=== PATIENT | female | born 1925 | race Caucasian/White ===

== ENCOUNTER 2016-09-05 17:45 | Inpatient (IN) | payer MEDICARE ==
--- NOTE | ~2016-09-05 | DS ---
Discharge Summary [facility] [address] [place]. [address] NAME: LYNETTE SPANN : [birth year] STATUS : DIS IN PAT#: [id number] AGE: 89 ADM/REG DATE : 09/05/16 MR#: [id number] REPORT SERV DATE: 10/01/16 DICTATED BY: JOSÉ RAHMAN DATE: 09/30/16 REPORT STATUS : Draft TRANSCRIBED BY: EPIFANIO DATE: 09/30/16 Data Collection from hospitalization DISCHARGE DIAGNOSES: 1. Acute/chronic diastolic congestive heart failure. 2. Atrial fibrillation. 3. Gastrointestinal bleeding. 4. Anemia. 5. Chronic kidney disease. 6. Hypertension. 7. Hypothyroidism. 8. Dyslipidemia. CONSULTATIONS: CHRISTINA Dial PROCEDURES PERFORMED: Upper GI endoscopy on 09/11/2016. PATHOLOGY: Stomach biopsy - mild chronic gastritis with focal activity and foci of intestinal metaplasia. Immunohistochemistry for H. pylori negative. MEDICATIONS: Caltrate 600 mg with lunch, Cardizem CD 120 mg daily, Benadryl 25 mg at bedtime, ferrous sulfate 150 mg twice a day, glucosamine and chondroitin one tablet with lunch, levothyroxine 50 mcg before breakfast, melatonin 3 mg at bedtime, Protonix 40 mg before breakfast, Demadex 20 mg daily, Symbicort two puffs via inhaler twice a day, glucosamine 1000 mg with breakfast, Systane one drop as needed in the right eye, PreserVision one capsule with breakfast and supper, ipratropium 0.5 mg via nebulizer twice a day, and sotalol AF 80 mg twice a day. CONDITION AT DISCHARGE: Stable. DISPOSITION: The patient was discharged to [facility] on a low-sodium diet with activities as instructed. She would follow up for an EKG on 09/23/2016 at [facility]. She would follow up with Dr. José Rahman on 09/26/2016 at this [place] [facility]. She would follow up with her primary care physician Dr. Cyndie Merritt one to two weeks following discharge. HOSPITAL COURSE: This is an 89-year-old female who has had multiple medical and cardiovascular issues, which include a history of systolic heart failure. The patient's ejection fraction more recently had improved to normal. Her most recent echocardiogram from December of 2015 demonstrated normal left ventricular systolic function with ejection fraction of 60%. She was in her usual state of health until about several days prior to admission when she began to have paroxysm of palpitations, which she reports are consistent with atrial fibrillation. The patient presented to the emergency room on 09/02/2016 for evaluation. At that time, she was treated on an outpatient basis with IV Lasix and eventually discharged home. The patient continued to have progressive shortness of breath. She presented back to the emergency room and had atrial fibrillation with rapid ventricular response and acute congestive heart failure. She had audible wheezing and orthopnea. She denied chest pain at this time, fevers or chills. She denied a productive cough. She was Discharge Summary [address] [place]. [address] NAME: LYNETTE SPANN : [birth year] STATUS : DIS IN PAT#: [id number] AGE: 89 ADM/REG DATE : 09/05/16 MR#: [id number] REPORT SERV DATE: 10/01/16 DICTATED BY: JOSÉ RAHMAN DATE: 09/30/16 REPORT STATUS : Draft TRANSCRIBED BY: EPIFANIO DATE: 09/30/16 admitted to the hospital for further evaluation and treatment. Upon admission, chest x-ray showed dual-chamber pacemaker with leads in the appropriate position in the right atrium and right ventricle. There appeared to be [id number] pulmonary vascular congestion in a "bat winging" pattern. No significant effusions were noted. Lungs were under inflated. The thoracic aorta was tortuous. The patient was started on Cardizem drip for rate control. Carvedilol would be increased as tolerated or consider the addition of a low-dose calcium channel praveen for rate control. It was felt that it would probably be best to diurese the patient, so she was euthymic prior to cardioversion. We would replace her serum magnesium. Transthoracic echocardiogram was requested to ensure there had been no significant change in the patient's left ventricular systolic function. IV Lasix was going to begin and it was felt that the patient's congestive heart failure most likely was precipitated by atrial fibrillation with rapid ventricular response. The patient had a history of guaiac-positive stool. She has microcytic anemia, which was most likely due to chronic blood loss. Unfortunately, the patient is also relatively higher risk for stroke if we were to discontinue the Coumadin. The patient had previously refused referral for upper and lower endoscopy. Once she had been optimized, we would consider a GI consult to consider upper and lower endoscopy to identify the source of the patient's blood loss. Stool guaiacs would be obtained. The patient has dual-chamber pacemaker, and on most recent interrogation, there was normal device function. The following day, there had been minimal improvement. She had some nausea, but no emesis. She had trace pedal edema. Lasix continued as well as Coreg. Famotidine was discontinued. IV Protonix was started. She continued to complain of generalized fatigue. Lasix was on hold for increasing creatinine. Apparently, the patient had been receiving oral Bumex and this was also discontinued. On 09/09/2016, she was being transfused. She still had some wheezing. H and H had decreased. She was seen by Dre Choi for evaluation and management of GI bleeding and acute blood loss anemia. She has been Hemoccult positive on 05/28 stools. She said she had on and off black stools for one to two months. She was significantly short of breath just getting to the bedside commode. She does have acute on chronic anemia. She will be re-evaluated the following morning. There was concern about her pulmonary status at this time. She had audible wheezing and shortness of breath. Proton pump inhibitor was increased. She would be re- evaluated for potential scope, the patient and her daughter were agreeable. On 09/10/2016, her breathing seemed better. She had a couple of bowel movements that were brown. She said she has had overnight breathing issues, but that morning those had improved. Plans were being made for an EGD to be performed. She seemed to be breathing easily. IV Lasix was restarted for volume overload. Creatinine had improved. She was not a candidate for further cardiac workup at the present time secondary to her chronic kidney disease and ongoing GI bleed. On 09/11/2016, she was taken to the endoscopic suite where she underwent the above-mentioned procedure by Dr. Hernan Phillips. She tolerated this well, and there were no complications. There was a hiatal hernia. There was erythematous mucosa in the stomach, which was biopsied. The exam was otherwise normal. She had some increased shortness of breath. Her heart rate increased and she was in atrial fibrillation. It was felt that she had questionable pulmonary toxicity to amiodarone. Coreg and Lasix were increased. IV Cardizem Discharge Summary [id number] [place]. [address] NAME: LYNETTE SPANN : [birth year] STATUS : DIS IN PAT#: [id number] AGE: 89 ADM/REG DATE : 09/05/16 MR#: [id number] REPORT SERV DATE: 10/01/16 DICTATED BY: JOSÉ RAHMAN DATE: 09/30/16 REPORT STATUS : Draft TRANSCRIBED BY: EPIFANIO DATE: 09/30/16 was added. On 09/12/2016, she felt like her dyspnea was the same. She had no chest pain or palpitations. She has some nausea with breakfast. She did have one episode of vomiting. She was in atrial fibrillation with heart rate in the 70s-90s. Potassium supplementation was given. She had audible wheezing. There were no plans for colonoscopy as the patient and her family had refused. For the next couple of days, she remained in atrial fibrillation. Creatinine level was 1.75. She has not had a bowel movement in several days. Protonix was adjusted. Oral iron and vitamin C were continued. On 09/14/2016, she remained in atrial fibrillation with rapid ventricular response. She said she had been on amiodarone in the past, but this had been discontinued by Dr. Campbell. On 09/15/2016, she said she still felt bad. She still had increased ventricular response. Creatinine was 1.66. She was upset about continuing on n.p.o. Status. It was felt that she may possibly need to undergo ablation. She said she was feeling better overall physically. Discharge planning was performed. On 09/17/2016, she had no specific complaints. She had no chest pain or shortness of breath. There was no melena seen. Telemetry revealed atrial paced rhythm. The patient did appear euvolemic. Torsemide was continued. No AV miriam ablation was going to be performed at this time. Coumadin was going to be on hold. Pantoprazole was continued. Acute kidney injury was improving. We would avoid nephrotoxins. Later that day, the patient reverted back to atrial fibrillation. Given her left bundle-branch block, we felt that it was safe to start sotalol. Coreg was stopped. She had no symptoms at this time. She was going to receive her first dose of sotalol and then discharge her if there were no adverse side effects. Heart rate was controlled at 90- 110 beats per minute. Discharge instructions were given. Due to her improved and stable condition, she was discharged to [facility] with the above-stated instructions. Information collected by: Carly Gaytan I submit the above information as my discharge summary. BRENDA/EPIFANIO José Rahman MD / [id number] CC: MD Cyndie Kwong M.D. Destin Griffin-Trussell, FNP [facility]
--- NOTE | ~2016-09-05 | HP ---
History And Physical [place] [address] [address] [place]. [address] NAME: LYNETTE SHORT : [birth year] STATUS : ADM IN [facility]#: [id number] AGE: 89 ADM/REG DATE : 09/05/16 MR#: [id number] REPORT SERV DATE: 09/06/16 DICTATED BY: JOSÉ RAHMAN DATE: 09/06/16 REPORT STATUS : Draft TRANSCRIBED BY: MODL DATE: 09/06/16 DATE OF ADMISSION: 09/05/2016 IDENTIFYING DATA: The patient is an 89-year-old woman with a history of paroxysmal atrial fibrillation and combined systolic/diastolic congestive heart failure. CHIEF COMPLAINT: The patient is admitted with a several-day history of shortness of breath, palpitations, and fatigue. HISTORY OF PRESENT ILLNESS: Ms. Short is an 89-year-old woman with multiple medical and cardiovascular issues which include a history of systolic heart failure. The patient's ejection fraction more recently has improved to normal. Her most recent echocardiogram from December of 2015 demonstrates normal left ventricular systolic function with an ejection fraction of 60%. The patient was in her usual state of health until several days ago. The patient has been having paroxysms of palpitations, which she reports are consistent with atrial fibrillation. The patient presented to the emergency room on 09/02/2016 for evaluation. At that time, she was treated on an outpatient basis with IV Lasix and eventually discharged to home. The patient continued to have progressive shortness of breath. She presented back to the emergency room last night and has been admitted for atrial fibrillation with rapid ventricular response and acute congestive heart failure. At this time, the patient continues to have shortness of breath at rest. She has audible wheezing, and endorses orthopnea. She denies chest pain at this time. She denies fevers or chills. She denies productive cough. PAST MEDICAL HISTORY: 1. Atrial fibrillation with tachy-mick syndrome, status post dual-chamber pacemaker placement. 2. Hypothyroidism. 3. COPD with FEV1 of approximately 0.86 L. 4. Diastolic congestive heart failure. 5. Hypertension. 6. Dyslipidemia. PAST SURGICAL HISTORY: 1. The patient has had a dual-chamber pacemaker implantation. 2. Vein stripping surgery. 3. Hysterectomy. 4. Tonsillectomy. 5. Left hip replacement. 6. Bilateral cataract extraction. FAMILY HISTORY: The patient's father of myocardial infarction at age 73. There is no other family history of early coronary heart disease or sudden cardiac . History And Physical [address] [address] NAME: LYNETTE SHORT : [birth year] STATUS : ADM IN PAT#: [id number] AGE: 89 ADM/REG DATE : 09/05/16 MR#: [id number] REPORT SERV DATE: 09/06/16 DICTATED BY: JOSÉ RAHMAN DATE: 09/06/16 REPORT STATUS : Draft TRANSCRIBED BY: EPIFANIO DATE: 09/06/16 SOCIAL HISTORY: The patient has no significant history of tobacco, alcohol, or drug use. 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 ALLERGIES: THE PATIENT HAS AN ANAPHYLACTOID REACTION TO PENICILLIN. SHE HAS ADVERSE REACTIONS TO SULFA, WHICH CAUSES NAUSEA AND PREDNISONE WHICH CAUSES ANXIETY/NERVOUSNESS. HOME MEDICATIONS: 1. DuoNebs one inhalation twice daily. 2. Symbicort 160/4.5 mcg inhaler two puffs twice daily. 3. Calcium carbonate 600 mg p.o. daily with lunch. 4. Carvedilol 6.25 mg p.o. twice daily. 5. Vitamin D3 1000 units p.o. q.p.m. 6. Benadryl 25 mg p.o. at bedtime. 7. Famotidine 20 mg p.o. daily with lunch. 8. Lasix 20 mg p.o. daily x3 days. This was given to the patient at the time of her recent emergency room visit. 9. Glucosamine 1 g p.o. q.a.m. 10.Hydrochlorothiazide 12.5 mg daily with lunch. 11.Levothyroxine 50 mcg p.o. daily. 12.Melatonin 3 mg p.o. at bedtime. 13.Systane ophthalmologic drops p.r.n. dry eyes. 14.Multivitamin supplement one daily. 15.Coumadin 2 mg p.o. every Friday, Friday, Friday, , and Friday and 2.5 mg every Friday and Friday. REVIEW OF SYSTEMS: A complete 12-system review was performed. This is noncontributory except for the pertinent positives and negatives noted in the history of present illness above. PHYSICAL EXAMINATION: VITAL SIGNS: Temperature is 98.1 degrees Fahrenheit, blood pressure is 109/59 mmHg, heart rate on admission is approximately 150 beats per minute and irregularly irregular. The patient's heart rate at this time is approximately 90 beats per minute after being started on Cardizem drip, respirations 16, oxygen saturation is 100% on a 3 L nasal cannula. CONSTITUTIONAL: The patient is an elderly white woman, who is mildly dyspneic at this time, but in no acute respiratory distress. She is able to speak in complete sentences and is grossly oriented x3. EYES: PERRL, EOMI, clear conjunctiva. HEAD/MNT: NCAT with moist mucous membranes and grossly normal hard and soft palate. NECK: Supple with no obvious thyromegaly or lymphadenopathy. CARDIOVASCULAR: There is an irregularly irregular rhythm with a variable S1 and a paradoxically split second heart sound. The jugular venous pressure is elevated to approximately 12 cm. No significant murmurs are noted. PULMONARY: There is diffuse inspiratory and expiratory wheezing noted, with globally decreased air movement. There are scattered posterior rales noted in the lung bases bilaterally. There is no dullness to percussion at this time. ABDOMINAL: Soft, nontender, nondistended with no hepatosplenomegaly noted. History And Physical [address] [address] NAME: LYNETTE SHORT : [birth year] STATUS : ADM IN [facility]#: [id number] AGE: 89 ADM/REG DATE : 09/05/16 MR#: [id number] REPORT SERV DATE: 09/06/16 DICTATED BY: JOSÉ RAHMAN DATE: 09/06/16 REPORT STATUS : Draft TRANSCRIBED BY: EPIAFNIO DATE: 09/06/16 EXTREMITIES: There is trace ankle edema with no significant clubbing or cyanosis. MUSCULOSKELETAL: Grossly normal strength and range of motion in all extremities. INTEGUMENTARY: Skin appears intact with no bruises, wounds or active lesions noted. NEURO/PSYC: Alert and oriented x3, with no dysarthria, facial droop or lateralizing weakness noted. 12-LEAD EKG: The patient's admission 12-lead EKG shows atrial fibrillation with a left bundle-branch block pattern and rapid ventricular response with a rate of 144 beats per minute. LABORATORY DATA: Cell count show a white blood cell count of 9.8, hemoglobin 8.2, hematocrit 25, platelets 274. Chemistry profile shows a sodium of 132, potassium 3.9, chloride is 94, CO2 of 24, BUN 44, creatinine is 1.39, glucose is 102, calcium 8.9, magnesium 1.7. Troponin I is normal at 0.02. B-type natriuretic peptide is grossly elevated at 1343. INR is 2.0. CHEST X-RAY: The patient's chest x-ray shows a dual-chamber pacemaker with leads in appropriate position in the right atrium and right ventricle. There appears to be mild-to- moderate pulmonary vascular congestion in a "bat winging" pattern. No significant effusions are noted. The lungs are underinflated. The thoracic aorta is tortuous. ASSESSMENT AND PLAN: 1. Atrial fibrillation with rapid ventricular response: The patient will be started on a Cardizem drip for rate control. We will increase carvedilol as tolerated or consider addition of a low-dose calcium channel praveen for rate control. The patient did eat breakfast this morning, and therefore I will be unable to cardiovert the patient today. It would probably be best to diurese the patient so that she is in euthymic state prior to cardioversion at any rate. We will also replace the patient's serum magnesium. 2. Acute congestive heart failure: A transthoracic echocardiogram will be obtained to ensure there has been no significant change in the patient's left ventricular systolic function. The patient will be started on Lasix 40 mg IV q.12 hours. The patient's congestive heart failure was most likely precipitated by atrial fibrillation with rapid ventricular response. 3. Chronic anemia: The patient does have a history of guaiac-positive stool. She has a microcytic anemia, which is most likely due to chronic blood loss. Unfortunately, the patient is also relatively high risk for stroke if we were to discontinue Coumadin. The patient has previously refused referral for upper and lower endoscopy. Once the patient has been optimized, we will consider a GI consult to consider upper and lower endoscopy to identify the source of the patient's blood loss. Stool guaiacs will be obtained. 4. Status post dual-chamber pacemaker placement: Normal device function according to the patient's most recent interrogation. [facility] History And Physical [address] [place]. [address] NAME: LYNETTE SHORT : [birth year] STATUS : ADM IN PAT#: [id number] AGE: 89 ADM/REG DATE : 09/05/16 MR#: [id number] REPORT SERV DATE: 09/06/16 DICTATED BY: JOSÉ RAHMAN DATE: 09/06/16 REPORT STATUS : Draft TRANSCRIBED BY: MODL DATE: 09/06/16 José Rahman MD / [id number] CC: MD Cyndie Kwong M.D.
--- NOTE | ~2016-09-05 | CN ---
Consultation Report [facility] [address] [place]. [address] NAME: ITALIA SHORT : [birth year] STATUS : ADM IN PAT#: [id number] AGE: 89 ADM/REG DATE : 09/05/16 MR#: [id number] REPORT SERV DATE: 09/09/16 DICTATED BY: JIMMIE PETERSON DATE: 09/09/16 REPORT STATUS : Draft TRANSCRIBED BY: MODL DATE: 09/09/16 GI CONSULTATION DATE OF CONSULTATION: 09/09/2016 REASON FOR CONSULTATION: Evaluation and management of the patient for GI bleeding and acute blood loss anemia. HISTORY OF PRESENT ILLNESS: Ms Italia Short is a very pleasant 89-year-old female patient who had been seen by Vinny YANCEY in the office by nurse practitioner, Megan Benavides, in 2015 secondary to anemia. The patient presented to [facility] with a chief complaint of shortness of breath, palpitations, and fatigue. She has a history of proximal atrial fibrillation, systolic and diastolic CHF with a history of being on Coumadin, cessation three days ago. She presented with several days of palpitations with shortness of breath that progressively worsened. She was actually seen in the emergency room 09/02/2016 for evaluation. At that time, she was treated with IV Lasix and eventually was discharged to home. She states that her shortness of breath continued to get worse. Thus she came in for further evaluation and was found to be in atrial fibrillation with rapid ventricular response as well as acute congestive heart failure. Since that time, she had noted to significantly decline in her hemoglobin, admission hemoglobin 8.2, presently 6.7. She has been Hemoccult positive one out of three stools. She has a history of what she tells me is on and off black stools for close to one to two months. It should be noted that the patient had a bowel movement right before entering the room, and I did evaluate this and it is just a soft brown stool. She has recently had an infusion of packed red blood cells. She is audibly wheezing. I can hear her from across the room. She is significantly short of breath, just getting it from the bedside commode to get back into the bed. She cannot catch her breath to have the conversation with me, so her daughters have supplied with most of the history of present illness. When she was seen in 2015, she was seen twice and it was discussed with the family as well as the patient endoscopy, to which, each time they declined secondary to comorbidities. I have discussed with them that we will re-evaluate her tomorrow for potential scopes on Friday after her pulmonary status has improved. PAST MEDICAL HISTORY: Positive for atrial fibrillation; history of tachy-mick syndrome, status post pacemaker placement; hypothyroidism; COPD, followed by Dr. Herrera; diastolic CHF, hypertension, dyslipidemia; anemia. SURGICAL HISTORY: Pacemaker, vein stripping, tonsillectomy, left hip replacement, bilateral cataracts, hysterectomy. FAMILY HISTORY: Noncontributory from a GI standpoint. SOCIAL HISTORY: She lives with her daughter. Denies alcohol, tobacco, or illicits. Consultation Report [address] [place]. [address] NAME: ITALIA SHORT : [birth year] STATUS : ADM IN [facility]#: [id number] AGE: 89 ADM/REG DATE : 09/05/16 MR#: [id number] REPORT SERV DATE: 09/09/16 DICTATED BY: JIMMIE PETERSON DATE: 09/09/16 REPORT STATUS : Draft TRANSCRIBED BY: EPIFANIO DATE: 09/09/16 ALLERGIES: PENICILLIN, SULFA, AND PREDNISONE. MEDICATIONS: Home medications are albuterol, Symbicort, Caltrate, Coreg, vitamin D3, Benadryl, Pepcid, Lasix, glucosamine, hydrochlorothiazide, levothyroxine, melatonin, Systane, PreserVision, Jantoven. REVIEW OF SYSTEMS: A 10-point review of systems has been obtained. Pertinent positives addressed in the history of present illness. PHYSICAL EXAMINATION: VITAL SIGNS: Temperature is 98.4, pulse 90, respirations 16, blood pressure is 111/56. GENERAL: Reveals an alert, chronically ill-appearing female, sitting up on the bedside. She is cooperative. She is in distress secondary to shortness of breath. She is hard of hearing, but alert and oriented x3. HEAD, EARS, EYES, NOSE, AND THROAT: Anicteric. Pupils equal, round, reactive to light, and accommodation. Normocephalic and atraumatic. NECK: No JVD. No palpable nodes. Supple. LUNGS: She has audible wheezing from across the room. On assessment, she has bilateral wheezing in the upper lobes on expiratory phase. She has crackles bilaterally. CARDIOVASCULAR SYSTEM: Regular rate and rhythm. ABDOMEN: Soft, nondistended, nontender with active bowel sounds. SKIN: Warm and dry and intact. LOWER EXTREMITIES: 1 to 2+ bilateral lower extremity edema. PERTINENT LABORATORY DATA: Sodium 128, potassium 4.1, BUN is 48, creatinine is 1.6. White count 8.5, hemoglobin 6.7, hematocrit 20.4, platelet count 215. INR of 1.9. Troponin 0.02. BNP 1343. Hemoccult positive one out of three. PERTINENT IMAGING: Chest x-ray on admission showed to be normal. ASSESSMENT AND PLAN: 1. Anemia acute on chronic. Declined since hospitalization. 2. Hemoccult-positive, one out of three, with a history of dark stools. 3. Diastolic congestive heart failure overload. 4. Hyponatremia. 5. History of atrial fibrillation, on Coumadin, that has been held. PLAN: 1. Re-evaluate in the morning and concerned with her pulmonary status at this time. Audible wheezing. Shortness of breath. 2. We will increase her PPI to t.i.d. dosing. 3. We will re-evaluate in the morning for potential scopes on Friday. I discussed this all with the patient as well as the patient's daughter, they are agreeable. Consultation Report [facility] [address] [place]. [address] NAME: ITALIA SHORT : [birth year] STATUS : ADM IN [facility]#: [id number] AGE: 89 ADM/REG DATE : 09/05/16 MR#: [id number] REPORT SERV DATE: 09/09/16 DICTATED BY: JIMMIE PETERSON DATE: 09/09/16 REPORT STATUS : Draft TRANSCRIBED BY: EPIFANIO DATE: 09/09/16 CHA/EPIFANIO CHRISTINA Dial / [id number] CC: MD Cyndie Kwong M.D.
--- NOTE | ~2016-09-05 | EGD ---
EGD REPORT [facility] [address] [address] NAME: ITALIA SHORT : [birth year] STATUS : ADM IN PAT#: [id number] AGE: 89 ADM/REG DATE : 09/05/16 MR#: [id number] REPORT SERV DATE: 09/11/16 DICTATED BY: HERNAN DOS SANTOS DATE: 09/11/16 REPORT STATUS : Draft [facility]ANSCR[facility]ED [facility]: [facility] DATE: 09/11/16 Endoscopy Center Patient Name: Italia Short Date of : 1925 Attending MD: HERNAN DOS SANTOS MD Procedure Date No Time: 09/11/2016 Procedure: Upper GI endoscopy Indications: Anemia, Heme positive stool Medicines: Monitored Anesthesia Care Complications: No immediate complications. Estimated blood loss: Minimal. Procedure: Pre-Anesthesia Assessment: - ASA Grade Assessment: III - A patient with severe systemic disease. After obtaining informed consent, the endoscope was passed under direct vision. Throughout the procedure, the patient's blood pressure, pulse, and oxygen saturations were monitored continuously. The GIF [id number] was introduced through the mouth, and advanced to the second part of duodenum. The upper GI endoscopy was accomplished without difficulty. The patient tolerated the procedure well. Findings: The examined esophagus was normal. A medium-sized hiatus hernia was present. Diffuse moderately erythematous mucosa without bleeding was found in the entire examined stomach. Biopsies were taken with a cold forceps for Helicobacter pylori testing. Estimated blood loss was minimal. The examined duodenum was normal. The exam was otherwise without abnormality. Impression: - Hiatus hernia. - Erythematous mucosa in the stomach. Biopsied. - The examination was otherwise normal. Recommendation: - [facility]. - Await pathology results. Procedure Code(s): --- Professional --- 87662, Esophagogastroduodenoscopy, flexible, transoral; with biopsy, single or multiple Diagnosis Code(s): --- Professional --- K44.9, Diaphragmatic hernia without obstruction or EGD REPORT [address] [place]. [address] NAME: ITALIA SHORT : [birth year] STATUS : ADM IN [facility]#: [id number] AGE: 89 ADM/REG DATE : 09/05/16 MR#: [id number] REPORT SERV DATE: 09/11/16 DICTATED BY: HERNAN DOS SANTOS DATE: 09/11/16 REPORT STATUS : Draft TRANSCRIBED BY: [employer] [facility] DATE: 09/11/16 gangrene K31.9, Disease of stomach and duodenum, unspecified D64.9, Anemia, unspecified R19.5, Other fecal abnormalities CPT copyright 2013 [employer]. All rights reserved. The codes documented in this report are preliminary and upon clinical coder review may be revised to meet current compliance requirements. Hernan Dos Santos MD HERNAN DOS SANTOS MD 09/11/2016 8:18 AM This report has been signed electronically. Number of Addenda: 0 Note Initiated On: 09/11/2016 7:47 AM Scope Withdrawal Time 0 hours 0 minutes 0 seconds [address] [place] [address]
[~2016-09-05 17:45] MED LIST: ADVAIR250 INH; ASAB PO; BEN25 PO; BUM1 PO; C1 PO; C5 PO; CALTRAT600 PO; COREG3 PO; COREG6 PO; DIGITEK0.125 MG PO; DILT-XR120 MG PO; FISH-EPA1000 MG PO; GARLIFE OR; GARLIFE PO; GLUCCHONDR PO; GLUCOSAMINE SULFATE PO; HYDROCHLOROT12.5 MG PO; LEVAQ250 PO; LEVOTHYROXIN50 MCG PO; LOVENOX60 SC; MELA3 PO; MELATONIN PO; MELATONIN1 MG OR; MICRO-K10 MEQ PO; MUCINEX600 MG PO; NIFEDIAC CC60 MG PO; OS500 PO; PACERONE100 MG PO; PEP20 PO; PRESERVISION PO; PREVISION; PRIN10 PO; PRIN20 PO; TAMBO50 PO; VALERIAN PO
[2016-09-05 18:19] LABS: BASOPHILS 0.3 %; BASOPHILS ABSOLUTE 0.03 10/3/uL (0.0-0.16); EOSINOPHILS 1.8 %; EOSINOPHILS ABSOLUTE 0.18 10/3/uL (0.0-0.53); ER CBC TAT 0 Hrs 05 Mins; HEMATOCRIT 25.1 % (36.0-48.0); HEMOGLOBIN 8.2 g/dL (12.0-16.0); IMMATURE GRANULOCYTES 0.1 %; IMMATURE GRANULOCYTES ABSOLUTE 0.01 10/3/uL (0.0-0.11); LYMPHOCYTES 36.6 %; LYMPHOCYTES ABSOLUTE 3.57 10/3/uL (0.67-4.30); MEAN CORPUS HGB CONC 32.7 g/dL (32.0-36.0); MEAN CORPUSCULAR VOLUME 76.5 fL (80-100); MEAN PLATELET VOLUME 10.2 fL (9.2-13.0); MONOCYTES 10.9 %; MONOCYTES ABSOLUTE 1.06 10/3/uL (0.21-1.20); NEUTROPHILS 50.3 %; NEUTROPHILS ABSOLUTE 4.91 10/3/uL (2.02-8.40); PLATELET COUNT 274 10/3/uL (150-400); RBC DISTRIBUTION WIDTH 15.8 % (12.0-16.0); RED CELL COUNT 3.28 10/6/uL (4.0-5.6); WHITE BLOOD CELLS 9.8 10/3/uL (4.5-10.5)
[2016-09-05 18:20] LABS: MANUAL DIFF NO %
[2016-09-05 18:31] LABS: INTERNATIONAL NORMAL RATI 2.2 UNITS (-); PARTIAL THROMBO TIME 32.4 SEC (22.5-37.2)
[2016-09-05 18:32] LABS: PROTIME (NOT ORD) 24.3 SEC (12.0-14.5)
[2016-09-05 18:36] LABS: CALCIUM, SERUM 8.9 MG/DL (8.5-10.4); CHEST PAIN PROFILE TAT 0 Hrs 22 Mins; CHLORIDE, SERUM 94 MMOL/L (96-112); CO2 (CARBON DIOXIDE) 28 MMOL/L (24-34); CREATININE 1.39 MG/DL (0.55-1.02); GFR AFRICAN AMERICAN 39 ML/MIN (>=60); GFR NON AFRICAN AMERICAN 34 ML/MIN (>=60); GLUCOSE, SERUM 102 MG/DL (60-99); POTASSIUM, SERUM 3.9 MMOL/L (3.5-5.3); SODIUM, SERUM 132 MMOL/L (135-148); TROPONIN I 0.02 NG/ML (<0.05)
[2016-09-05 18:37] LABS: BUN (BLOOD UREA NITROGEN) 44 MG/DL (6-23)
[2016-09-05] MEDS ORDERED: LEVOTHYROXIN50 MCG PO (21:08)
[2016-09-05] MEDS ORDERED: COREG6 PO (21:09)
[2016-09-05] MEDS ORDERED: JANTOVEN2 MG PO (21:09)
[2016-09-05] MEDS ORDERED: JANTOVEN2.5 MG PO (21:10)
[2016-09-05] MEDS ORDERED: CALTRAT600 PO (21:10)
[2016-09-05] MEDS ORDERED: SYSTANE OPH (21:11)
[2016-09-05] MEDS ORDERED: GLUCOSAMINEPO PO (21:11)
[2016-09-05] MEDS ORDERED: GLUCCHONDR PO (21:12)
[2016-09-05] MEDS ORDERED: MELA3 PO (21:12)
[2016-09-05] MEDS ORDERED: VITAMIN D31000 UNIT PO (21:12)
[2016-09-05] MEDS ORDERED: PRESERVISION A1 EAC1 PO (21:12)
[2016-09-05] MEDS ORDERED: BEN25 PO (21:12)
[2016-09-05] MEDS ORDERED: HYDROCHLOROT12.5 MG PO (21:13)
[2016-09-05] MEDS ORDERED: PEP20 PO (21:13)
[2016-09-05] MEDS ORDERED: ATROVENTUD INH (21:13)
[2016-09-05] MEDS ORDERED: SYMBICORT 160/41 INH INH (21:13)
[2016-09-05] MEDS ORDERED: L20 PO (21:14)
[2016-09-06 05:42] LABS: PROTIME (NOT ORD) 22.6 SEC (12.0-14.5)
[2016-09-06 05:54] LABS: CALCIUM, SERUM 8.4 MG/DL (8.5-10.4); CHLORIDE, SERUM 96 MMOL/L (96-112); CO2 (CARBON DIOXIDE) 27 MMOL/L (24-34); CREATININE 1.32 MG/DL (0.55-1.02); GFR AFRICAN AMERICAN 41 ML/MIN (>=60); GFR NON AFRICAN AMERICAN 36 ML/MIN (>=60); GLUCOSE, SERUM 94 MG/DL (60-99); PHOSPHORUS, SERUM 3.1 MG/DL (2.5-4.5); POTASSIUM, SERUM 3.7 MMOL/L (3.5-5.3); SODIUM, SERUM 134 MMOL/L (135-148)
[2016-09-06 05:58] LABS: BUN (BLOOD UREA NITROGEN) 40 MG/DL (6-23)
[2016-09-07 06:05] LABS: BASOPHILS 0.2 %; BASOPHILS ABSOLUTE 0.02 10/3/uL (0.0-0.16); EOSINOPHILS 1.7 %; EOSINOPHILS ABSOLUTE 0.18 10/3/uL (0.0-0.53); HEMATOCRIT 23.4 % (36.0-48.0); HEMOGLOBIN 7.7 g/dL (12.0-16.0); IMMATURE GRANULOCYTES 0.3 %; IMMATURE GRANULOCYTES ABSOLUTE 0.03 10/3/uL (0.0-0.11); LYMPHOCYTES 23.5 %; LYMPHOCYTES ABSOLUTE 2.54 10/3/uL (0.67-4.30); MEAN CORPUS HGB CONC 32.9 g/dL (32.0-36.0); MEAN CORPUSCULAR HEMOGLOB 25.1 pg (26.0-34.0); MEAN CORPUSCULAR VOLUME 76.2 fL (80-100); NEUTROPHILS 62.3 %; NEUTROPHILS ABSOLUTE 6.74 10/3/uL (2.02-8.40); PLATELET COUNT 247 10/3/uL (150-400); RBC DISTRIBUTION WIDTH 15.6 % (12.0-16.0); RED CELL COUNT 3.07 10/6/uL (4.0-5.6); WHITE BLOOD CELLS 10.8 10/3/uL (4.5-10.5)
[2016-09-07 06:07] LABS: INTERNATIONAL NORMAL RATI 1.7 UNITS (-); MANUAL DIFF NO %; PROTIME (NOT ORD) 19.8 SEC (12.0-14.5)
[2016-09-07 06:17] LABS: BUN (BLOOD UREA NITROGEN) 42 MG/DL (6-23); CALCIUM, SERUM 8.5 MG/DL (8.5-10.4); CHLORIDE, SERUM 90 MMOL/L (96-112); CO2 (CARBON DIOXIDE) 31 MMOL/L (24-34); CREATININE 1.44 MG/DL (0.55-1.02); GFR AFRICAN AMERICAN 37 ML/MIN (>=60); GFR NON AFRICAN AMERICAN 32 ML/MIN (>=60); GLUCOSE, SERUM 105 MG/DL (60-99); POTASSIUM, SERUM 3.5 MMOL/L (3.5-5.3); SODIUM, SERUM 131 MMOL/L (135-148)
[2016-09-08 05:05] LABS: INTERNATIONAL NORMAL RATI 1.9 UNITS (-); PROTIME (NOT ORD) 21.2 SEC (12.0-14.5)
[2016-09-08 05:14] LABS: BUN (BLOOD UREA NITROGEN) 44 MG/DL (6-23); CALCIUM, SERUM 8.1 MG/DL (8.5-10.4); CHLORIDE, SERUM 89 MMOL/L (96-112); CO2 (CARBON DIOXIDE) 31 MMOL/L (24-34); CREATININE 1.57 MG/DL (0.55-1.02); GFR AFRICAN AMERICAN 34 ML/MIN (>=60); GFR NON AFRICAN AMERICAN 29 ML/MIN (>=60); GLUCOSE, SERUM 103 MG/DL (60-99); POTASSIUM, SERUM 3.7 MMOL/L (3.5-5.3); SODIUM, SERUM 130 MMOL/L (135-148)
[2016-09-08 17:03] LABS: BASOPHILS 0.2 %; BASOPHILS ABSOLUTE 0.02 10/3/uL (0.0-0.16); EOSINOPHILS 1.7 %; EOSINOPHILS ABSOLUTE 0.16 10/3/uL (0.0-0.53); HEMATOCRIT 23.3 % (36.0-48.0); HEMOGLOBIN 7.6 g/dL (12.0-16.0); IMMATURE GRANULOCYTES 0.3 %; IMMATURE GRANULOCYTES ABSOLUTE 0.03 10/3/uL (0.0-0.11); LYMPHOCYTES 23.5 %; LYMPHOCYTES ABSOLUTE 2.25 10/3/uL (0.67-4.30); MEAN CORPUS HGB CONC 32.6 g/dL (32.0-36.0); MEAN CORPUSCULAR HEMOGLOB 24.8 pg (26.0-34.0); MEAN CORPUSCULAR VOLUME 76.1 fL (80-100); MEAN PLATELET VOLUME 10.6 fL (9.2-13.0); MONOCYTES 10.9 %; MONOCYTES ABSOLUTE 1.04 10/3/uL (0.21-1.20); NEUTROPHILS 63.4 %; NEUTROPHILS ABSOLUTE 6.08 10/3/uL (2.02-8.40); PLATELET COUNT 251 10/3/uL (150-400); RBC DISTRIBUTION WIDTH 15.6 % (12.0-16.0); RED CELL COUNT 3.06 10/6/uL (4.0-5.6); WHITE BLOOD CELLS 9.6 10/3/uL (4.5-10.5)
[2016-09-08 17:05] LABS: MANUAL DIFF NO %
[2016-09-09 05:46] LABS: CALCIUM, SERUM 8.2 MG/DL (8.5-10.4); CHLORIDE, SERUM 89 MMOL/L (96-112); CO2 (CARBON DIOXIDE) 29 MMOL/L (24-34); GFR AFRICAN AMERICAN 33 ML/MIN (>=60); GFR NON AFRICAN AMERICAN 28 ML/MIN (>=60); GLUCOSE, SERUM 104 MG/DL (60-99); POTASSIUM, SERUM 4.1 MMOL/L (3.5-5.3); SODIUM, SERUM 128 MMOL/L (135-148)
[2016-09-09 05:52] LABS: BUN (BLOOD UREA NITROGEN) 48 MG/DL (6-23)
[2016-09-09 06:56] LABS: BASOPHILS 0.2 %; BASOPHILS ABSOLUTE 0.02 10/3/uL (0.0-0.16); EOSINOPHILS 1.2 %; IMMATURE GRANULOCYTES 0.2 %; IMMATURE GRANULOCYTES ABSOLUTE 0.02 10/3/uL (0.0-0.11); LYMPHOCYTES 28.9 %; LYMPHOCYTES ABSOLUTE 2.46 10/3/uL (0.67-4.30); MEAN CORPUS HGB CONC 32.8 g/dL (32.0-36.0); MEAN CORPUSCULAR HEMOGLOB 24.9 pg (26.0-34.0); MEAN CORPUSCULAR VOLUME 75.8 fL (80-100); MEAN PLATELET VOLUME 10.9 fL (9.2-13.0); MONOCYTES 12.2 %; MONOCYTES ABSOLUTE 1.04 10/3/uL (0.21-1.20); NEUTROPHILS 57.3 %; NEUTROPHILS ABSOLUTE 4.87 10/3/uL (2.02-8.40); PLATELET COUNT 215 10/3/uL (150-400); RBC DISTRIBUTION WIDTH 15.8 % (12.0-16.0); RED CELL COUNT 2.69 10/6/uL (4.0-5.6); WHITE BLOOD CELLS 8.5 10/3/uL (4.5-10.5)
[2016-09-09 06:58] LABS: HEMATOCRIT 20.4 % (36.0-48.0); HEMOGLOBIN 6.7 g/dL (12.0-16.0)
[2016-09-09 06:59] LABS: MANUAL DIFF NO %
[2016-09-10 06:32] LABS: BASOPHILS 0.3 %; BASOPHILS ABSOLUTE 0.03 10/3/uL (0.0-0.16); EOSINOPHILS 1.2 %; EOSINOPHILS ABSOLUTE 0.12 10/3/uL (0.0-0.53); HEMATOCRIT 29.3 % (36.0-48.0); HEMOGLOBIN 10.1 g/dL (12.0-16.0); IMMATURE GRANULOCYTES 0.3 %; IMMATURE GRANULOCYTES ABSOLUTE 0.03 10/3/uL (0.0-0.11); LYMPHOCYTES 19.5 %; LYMPHOCYTES ABSOLUTE 1.98 10/3/uL (0.67-4.30); MANUAL DIFF NO %; MEAN CORPUS HGB CONC 34.5 g/dL (32.0-36.0); MEAN CORPUSCULAR HEMOGLOB 26.2 pg (26.0-34.0); MEAN CORPUSCULAR VOLUME 76.1 fL (80-100); MEAN PLATELET VOLUME 10.3 fL (9.2-13.0); MONOCYTES ABSOLUTE 1.32 10/3/uL (0.21-1.20); NEUTROPHILS 65.7 %; NEUTROPHILS ABSOLUTE 6.66 10/3/uL (2.02-8.40); PLATELET COUNT 202 10/3/uL (150-400); RED CELL COUNT 3.85 10/6/uL (4.0-5.6); WHITE BLOOD CELLS 10.1 10/3/uL (4.5-10.5)
[2016-09-10 06:37] LABS: INTERNATIONAL NORMAL RATI 1.5 UNITS (-)
[2016-09-10 06:43] LABS: PROTIME (NOT ORD) 17.8 SEC (12.0-14.5)
[2016-09-10 06:45] LABS: CALCIUM, SERUM 8.4 MG/DL (8.5-10.4); CHLORIDE, SERUM 93 MMOL/L (96-112); CO2 (CARBON DIOXIDE) 27 MMOL/L (24-34); CREATININE 1.52 MG/DL (0.55-1.02); GFR AFRICAN AMERICAN 35 ML/MIN (>=60); GFR NON AFRICAN AMERICAN 30 ML/MIN (>=60); GLUCOSE, SERUM 100 MG/DL (60-99); POTASSIUM, SERUM 3.6 MMOL/L (3.5-5.3); SODIUM, SERUM 130 MMOL/L (135-148)
[2016-09-10 06:47] LABS: BUN (BLOOD UREA NITROGEN) 43 MG/DL (6-23)
[2016-09-11 04:33] LABS: BASOPHILS 0.1 %; BASOPHILS ABSOLUTE 0.01 10/3/uL (0.0-0.16); HEMATOCRIT 30.3 % (36.0-48.0); HEMOGLOBIN 10.1 g/dL (12.0-16.0); IMMATURE GRANULOCYTES 0.3 %; IMMATURE GRANULOCYTES ABSOLUTE 0.03 10/3/uL (0.0-0.11); LYMPHOCYTES 21.9 %; LYMPHOCYTES ABSOLUTE 2.22 10/3/uL (0.67-4.30); MEAN CORPUS HGB CONC 33.3 g/dL (32.0-36.0); MEAN CORPUSCULAR HEMOGLOB 25.6 pg (26.0-34.0); MEAN CORPUSCULAR VOLUME 76.9 fL (80-100); MEAN PLATELET VOLUME 10.2 fL (9.2-13.0); MONOCYTES 12.9 %; MONOCYTES ABSOLUTE 1.31 10/3/uL (0.21-1.20); NEUTROPHILS 63.8 %; NEUTROPHILS ABSOLUTE 6.48 10/3/uL (2.02-8.40); PLATELET COUNT 211 10/3/uL (150-400); RBC DISTRIBUTION WIDTH 16.2 % (12.0-16.0); RED CELL COUNT 3.94 10/6/uL (4.0-5.6); WHITE BLOOD CELLS 10.2 10/3/uL (4.5-10.5)
[2016-09-11 04:35] LABS: MANUAL DIFF NO %
[2016-09-11 04:40] LABS: INTERNATIONAL NORMAL RATI 1.3 UNITS (-); PARTIAL THROMBO TIME 29.6 SEC (22.5-37.2)
[2016-09-11 04:44] LABS: BUN (BLOOD UREA NITROGEN) 42 MG/DL (6-23); CALCIUM, SERUM 8.7 MG/DL (8.5-10.4); CHLORIDE, SERUM 93 MMOL/L (96-112); CO2 (CARBON DIOXIDE) 28 MMOL/L (24-34); CREATININE 1.59 MG/DL (0.55-1.02); GFR AFRICAN AMERICAN 33 ML/MIN (>=60); GFR NON AFRICAN AMERICAN 28 ML/MIN (>=60); GLUCOSE, SERUM 115 MG/DL (60-99); POTASSIUM, SERUM 3.5 MMOL/L (3.5-5.3); SODIUM, SERUM 133 MMOL/L (135-148)
[2016-09-12 06:43] LABS: BASOPHILS 0.2 %; BASOPHILS ABSOLUTE 0.02 10/3/uL (0.0-0.16); EOSINOPHILS 1.2 %; HEMATOCRIT 29.9 % (36.0-48.0); HEMOGLOBIN 9.9 g/dL (12.0-16.0); IMMATURE GRANULOCYTES 0.4 %; IMMATURE GRANULOCYTES ABSOLUTE 0.03 10/3/uL (0.0-0.11); LYMPHOCYTES 24.5 %; LYMPHOCYTES ABSOLUTE 2.01 10/3/uL (0.67-4.30); MEAN CORPUS HGB CONC 33.1 g/dL (32.0-36.0); MEAN CORPUSCULAR HEMOGLOB 25.9 pg (26.0-34.0); MEAN CORPUSCULAR VOLUME 78.3 fL (80-100); MEAN PLATELET VOLUME 10.6 fL (9.2-13.0); MONOCYTES 14.2 %; MONOCYTES ABSOLUTE 1.17 10/3/uL (0.21-1.20); NEUTROPHILS 59.5 %; NEUTROPHILS ABSOLUTE 4.89 10/3/uL (2.02-8.40); PLATELET COUNT 206 10/3/uL (150-400); RBC DISTRIBUTION WIDTH 16.8 % (12.0-16.0); RED CELL COUNT 3.82 10/6/uL (4.0-5.6); WHITE BLOOD CELLS 8.2 10/3/uL (4.5-10.5)
[2016-09-12 06:44] LABS: MANUAL DIFF NO %
[2016-09-12 06:57] LABS: BUN (BLOOD UREA NITROGEN) 45 MG/DL (6-23); CALCIUM, SERUM 8.7 MG/DL (8.5-10.4); CHLORIDE, SERUM 91 MMOL/L (96-112); CO2 (CARBON DIOXIDE) 28 MMOL/L (24-34); CREATININE 1.64 MG/DL (0.55-1.02); GFR AFRICAN AMERICAN 32 ML/MIN (>=60); GFR NON AFRICAN AMERICAN 27 ML/MIN (>=60); GLUCOSE, SERUM 98 MG/DL (60-99); POTASSIUM, SERUM 3.2 MMOL/L (3.5-5.3); SODIUM, SERUM 133 MMOL/L (135-148)
[2016-09-12 13:54] LABS: FOLATE 38.5 NG/ML (>5.2); POTASSIUM, SERUM 4.3 MMOL/L (3.5-5.3)
[2016-09-13 05:14] LABS: BASOPHILS 0.2 %; BASOPHILS ABSOLUTE 0.02 10/3/uL (0.0-0.16); EOSINOPHILS 1.1 %; EOSINOPHILS ABSOLUTE 0.09 10/3/uL (0.0-0.53); HEMATOCRIT 29.7 % (36.0-48.0); HEMOGLOBIN 9.8 g/dL (12.0-16.0); IMMATURE GRANULOCYTES 0.4 %; IMMATURE GRANULOCYTES ABSOLUTE 0.03 10/3/uL (0.0-0.11); LYMPHOCYTES 24.9 %; LYMPHOCYTES ABSOLUTE 2.13 10/3/uL (0.67-4.30); MANUAL DIFF NO %; MEAN CORPUSCULAR HEMOGLOB 25.9 pg (26.0-34.0); MEAN CORPUSCULAR VOLUME 78.6 fL (80-100); MEAN PLATELET VOLUME 10.4 fL (9.2-13.0); MONOCYTES 11.1 %; MONOCYTES ABSOLUTE 0.95 10/3/uL (0.21-1.20); NEUTROPHILS 62.3 %; NEUTROPHILS ABSOLUTE 5.34 10/3/uL (2.02-8.40); PLATELET COUNT 200 10/3/uL (150-400); RED CELL COUNT 3.78 10/6/uL (4.0-5.6); WHITE BLOOD CELLS 8.6 10/3/uL (4.5-10.5)
[2016-09-13 05:21] LABS: BUN (BLOOD UREA NITROGEN) 48 MG/DL (6-23); CALCIUM, SERUM 8.4 MG/DL (8.5-10.4); CHLORIDE, SERUM 95 MMOL/L (96-112); CO2 (CARBON DIOXIDE) 31 MMOL/L (24-34); CREATININE 1.75 MG/DL (0.55-1.02); GFR AFRICAN AMERICAN 29 ML/MIN (>=60); GFR NON AFRICAN AMERICAN 25 ML/MIN (>=60); GLUCOSE, SERUM 117 MG/DL (60-99); POTASSIUM, SERUM 3.7 MMOL/L (3.5-5.3); SODIUM, SERUM 135 MMOL/L (135-148)
[2016-09-14 04:17] LABS: BASOPHILS 0.2 %; BASOPHILS ABSOLUTE 0.02 10/3/uL (0.0-0.16); EOSINOPHILS 1.5 %; EOSINOPHILS ABSOLUTE 0.13 10/3/uL (0.0-0.53); HEMATOCRIT 31.4 % (36.0-48.0); HEMOGLOBIN 10.3 g/dL (12.0-16.0); IMMATURE GRANULOCYTES 0.5 %; IMMATURE GRANULOCYTES ABSOLUTE 0.04 10/3/uL (0.0-0.11); LYMPHOCYTES 28.1 %; LYMPHOCYTES ABSOLUTE 2.38 10/3/uL (0.67-4.30); MEAN CORPUS HGB CONC 32.8 g/dL (32.0-36.0); MEAN CORPUSCULAR HEMOGLOB 25.8 pg (26.0-34.0); MEAN CORPUSCULAR VOLUME 78.5 fL (80-100); MEAN PLATELET VOLUME 10.5 fL (9.2-13.0); MONOCYTES 11.7 %; MONOCYTES ABSOLUTE 0.99 10/3/uL (0.21-1.20); PLATELET COUNT 208 10/3/uL (150-400); RBC DISTRIBUTION WIDTH 17.2 % (12.0-16.0); WHITE BLOOD CELLS 8.5 10/3/uL (4.5-10.5)
[2016-09-14 04:19] LABS: MANUAL DIFF NO %
[2016-09-14 04:33] LABS: BUN (BLOOD UREA NITROGEN) 52 MG/DL (6-23); CALCIUM, SERUM 8.3 MG/DL (8.5-10.4); CHLORIDE, SERUM 95 MMOL/L (96-112); CO2 (CARBON DIOXIDE) 30 MMOL/L (24-34); CREATININE 1.81 MG/DL (0.55-1.02); GFR AFRICAN AMERICAN 28 ML/MIN (>=60); GFR NON AFRICAN AMERICAN 24 ML/MIN (>=60); GLUCOSE, SERUM 115 MG/DL (60-99); POTASSIUM, SERUM 3.9 MMOL/L (3.5-5.3); SODIUM, SERUM 134 MMOL/L (135-148)
[2016-09-15 06:01] LABS: BUN (BLOOD UREA NITROGEN) 50 MG/DL (6-23); CALCIUM, SERUM 8.9 MG/DL (8.5-10.4); CHLORIDE, SERUM 95 MMOL/L (96-112); CO2 (CARBON DIOXIDE) 26 MMOL/L (24-34); CREATININE 1.66 MG/DL (0.55-1.02); GFR AFRICAN AMERICAN 31 ML/MIN (>=60); GFR NON AFRICAN AMERICAN 27 ML/MIN (>=60); GLUCOSE, SERUM 106 MG/DL (60-99); SODIUM, SERUM 132 MMOL/L (135-148)
[2016-09-16 16:14] LABS: BASOPHILS 0.2 %; BASOPHILS ABSOLUTE 0.02 10/3/uL (0.0-0.16); EOSINOPHILS 1.6 %; EOSINOPHILS ABSOLUTE 0.13 10/3/uL (0.0-0.53); HEMATOCRIT 32.9 % (36.0-48.0); HEMOGLOBIN 10.6 g/dL (12.0-16.0); IMMATURE GRANULOCYTES 0.4 %; IMMATURE GRANULOCYTES ABSOLUTE 0.03 10/3/uL (0.0-0.11); LYMPHOCYTES 20.2 %; LYMPHOCYTES ABSOLUTE 1.67 10/3/uL (0.67-4.30); MEAN CORPUS HGB CONC 32.2 g/dL (32.0-36.0); MEAN CORPUSCULAR HEMOGLOB 25.5 pg (26.0-34.0); MEAN CORPUSCULAR VOLUME 79.3 fL (80-100); MEAN PLATELET VOLUME 10.4 fL (9.2-13.0); MONOCYTES 10.7 %; MONOCYTES ABSOLUTE 0.88 10/3/uL (0.21-1.20); NEUTROPHILS 66.9 %; NEUTROPHILS ABSOLUTE 5.52 10/3/uL (2.02-8.40); PLATELET COUNT 199 10/3/uL (150-400); RBC DISTRIBUTION WIDTH 17.6 % (12.0-16.0); RED CELL COUNT 4.15 10/6/uL (4.0-5.6); WHITE BLOOD CELLS 8.3 10/3/uL (4.5-10.5)
[2016-09-16 16:15] LABS: MANUAL DIFF NO %
[2016-09-16 16:24] LABS: CALCIUM, SERUM 9.2 MG/DL (8.5-10.4); CHLORIDE, SERUM 92 MMOL/L (96-112); CREATININE 1.89 MG/DL (0.55-1.02); GFR AFRICAN AMERICAN 27 ML/MIN (>=60); GFR NON AFRICAN AMERICAN 23 ML/MIN (>=60); POTASSIUM, SERUM 3.8 MMOL/L (3.5-5.3); SODIUM, SERUM 131 MMOL/L (135-148)
[2016-09-16 16:25] LABS: BUN (BLOOD UREA NITROGEN) 46 MG/DL (6-23); CO2 (CARBON DIOXIDE) 31 MMOL/L (24-34); GLUCOSE, SERUM 134 MG/DL (60-99)
[2016-09-17 06:09] LABS: BASOPHILS 0.3 %; BASOPHILS ABSOLUTE 0.03 10/3/uL (0.0-0.16); EOSINOPHILS 1.2 %; EOSINOPHILS ABSOLUTE 0.11 10/3/uL (0.0-0.53); HEMATOCRIT 31.6 % (36.0-48.0); HEMOGLOBIN 10.4 g/dL (12.0-16.0); IMMATURE GRANULOCYTES 0.5 %; IMMATURE GRANULOCYTES ABSOLUTE 0.05 10/3/uL (0.0-0.11); LYMPHOCYTES 27.5 %; LYMPHOCYTES ABSOLUTE 2.54 10/3/uL (0.67-4.30); MANUAL DIFF NO %; MEAN CORPUS HGB CONC 32.9 g/dL (32.0-36.0); MEAN CORPUSCULAR HEMOGLOB 25.9 pg (26.0-34.0); MEAN CORPUSCULAR VOLUME 78.6 fL (80-100); MEAN PLATELET VOLUME 10.4 fL (9.2-13.0); MONOCYTES 10.1 %; MONOCYTES ABSOLUTE 0.93 10/3/uL (0.21-1.20); NEUTROPHILS 60.4 %; NEUTROPHILS ABSOLUTE 5.59 10/3/uL (2.02-8.40); PLATELET COUNT 206 10/3/uL (150-400); RBC DISTRIBUTION WIDTH 17.6 % (12.0-16.0); RED CELL COUNT 4.02 10/6/uL (4.0-5.6); WHITE BLOOD CELLS 9.3 10/3/uL (4.5-10.5)
[2016-09-17 06:10] LABS: INTERNATIONAL NORMAL RATI 1.3 UNITS (-); PROTIME (NOT ORD) 16.1 SEC (12.0-14.5)
[2016-09-17 06:18] LABS: BUN (BLOOD UREA NITROGEN) 46 MG/DL (6-23); CALCIUM, SERUM 9.4 MG/DL (8.5-10.4); CHLORIDE, SERUM 97 MMOL/L (96-112); CO2 (CARBON DIOXIDE) 28 MMOL/L (24-34); CREATININE 1.73 MG/DL (0.55-1.02); GFR AFRICAN AMERICAN 30 ML/MIN (>=60); GFR NON AFRICAN AMERICAN 26 ML/MIN (>=60); SODIUM, SERUM 135 MMOL/L (135-148)
[2016-09-17 06:20] LABS: GLUCOSE, SERUM 100 MG/DL (60-99)
[2016-12-01] MEDS ORDERED: PROTONIX PO (12:44)
[2016-12-01] MEDS ORDERED: DEMA20 PO (12:45)
[2016-12-01] MEDS ORDERED: FERROUS SULF325 M1 PO (12:45)
[2016-12-01] MEDS ORDERED: KLOR-CON M2020 MEQ PO (12:45)
[2016-12-01] MEDS ORDERED: CALTRAT600 PO (12:46)
[2016-12-01] MEDS ORDERED: NEUR300 PO (12:48)
[2016-12-01] MEDS ORDERED: LOP25 PO (12:48)
[2016-12-01] MEDS ORDERED: ELIQUIS 2.5 MG2.5 MG PO (12:52)
[2016-12-04] MEDS ORDERED: PACERONE200 MG PO (19:32)
[2016-12-04] MEDS ORDERED: BUM1 PO (19:35)
[2017-02-15] MEDS ORDERED: LEVOTHYROXIN50 MCG PO (22:30)
[2017-02-15] MEDS ORDERED: ELIQUIS 2.5 MG2.5 MG PO (22:31)
[2017-02-15] MEDS ORDERED: CORDARONE PO (22:31)
[2017-02-15] MEDS ORDERED: LOP25 PO (22:31)
[2017-02-15] MEDS ORDERED: KLOR-CON M2020 MEQ PO (22:32)
[2017-02-15] MEDS ORDERED: PROTONIX PO (22:32)
[2017-02-15] MEDS ORDERED: BUM1 PO (22:33)
[2017-02-15] MEDS ORDERED: NEUR300 PO (22:34)
[2017-02-15] MEDS ORDERED: ATROVENTUD INH (22:35)
[2017-02-15] MEDS ORDERED: SYMBICORT 160/41 INH INH (22:35)
[2017-02-15] MEDS ORDERED: PRESERVISION A1 EAC1 PO (22:36)
[2017-02-15] MEDS ORDERED: GLUCOSAMINEPO PO (22:36)
[2017-02-15] MEDS ORDERED: CALCIUM 600MG PO (22:37)
[2017-02-15] MEDS ORDERED: GLUCCHONDR PO (22:37)
[2017-02-15] MEDS ORDERED: SYSTANE OPH (22:39)
[2017-02-15] MEDS ORDERED: VITAMIN D1000 UNI1 PO (22:39)
[2017-02-15] MEDS ORDERED: BEN25 PO (22:40)
[2017-02-15] MEDS ORDERED: MELA3 PO (22:40)
[2017-02-15] MEDS ORDERED: ULTRAM50 PO (22:41)
== END 2016-09-17 16:16 | DRG 308 ==
LOC: ER 17:45 → 7NO 21:44
PROVIDERS: Emergency Medicine; Internal Medicine Cardiovascular Disease; Internal Medicine Clinical Cardiac Electrophysiology; Nurse Practitioner Family
PROC: 30233N1 Transfusion of Nonautologous Red Blood Cells into Peripheral Vein, Percutaneous Approach (ICD-10-PCS; principal; 2016-09-09)
PROC: 0DB68ZX Excision of Stomach, Via Natural or Artificial Opening Endoscopic, Diagnostic (ICD-10-PCS; 2016-09-11)
DX: I48.0 Paroxysmal atrial fibrillation (principal); I50.41 Acute combined systolic (congestive) and diastolic (congestive) heart failure; K92.2 Gastrointestinal hemorrhage, unspecified; J44.9 Chronic obstructive pulmonary disease, unspecified; E87.1 Hypo-osmolality and hyponatremia; D62 Acute posthemorrhagic anemia; I11.0 Hypertensive heart disease with heart failure; I44.7 Left bundle-branch block, unspecified; K29.50 Unspecified chronic gastritis without bleeding; E03.9 Hypothyroidism, unspecified; E78.5 Hyperlipidemia, unspecified; K44.9 Diaphragmatic hernia without obstruction or gangrene; K31.9 Disease of stomach and duodenum, unspecified; Z90.710 Acquired absence of both cervix and uterus; Z88.0 Allergy status to penicillin; Z95.0 Presence of cardiac pacemaker; Z88.8 Allergy status to other drugs, medicaments and biological substances; Z88.2 Allergy status to sulfonamides; Z96.642 Presence of left artificial hip joint; Z86.73 Personal history of transient ischemic attack (TIA), and cerebral infarction without residual deficits; Z86.711 Personal history of pulmonary embolism; Z90.89 Acquired absence of other organs; Z79.899 Other long term (current) drug therapy; Z79.01 Long term (current) use of anticoagulants; Z53.20 Procedure and treatment not carried out because of patient's decision for unspecified reasons
CPT/HCPCS: 36415; 71010; 71020; 80048; 82272; 82607; 82728; 82746; 83540; 83550; 83735; 83880; 84100; 84132; 84484; 85025; 85610; 85730; 86850; 86900; 86901; 86920; 88305; 88342; 93005; 94640; 96374; 99284; 99285; A9270-GY; C8929; C9113; J2930; P9016; Q9957